=== PATIENT | male | born 1965 | race American Indian/Alaskan Native ===

== ENCOUNTER 2019-07-22 07:27 | Day surgery (SDC) | payer OTHER ==
[2019-07-22] MEDS ORDERED: SODIUM CHLORIDE 0.9% 1000 ML 1,000 ML ONE (08:18)
[2019-07-22] MEDS ORDERED: LIDOCAINE MPF (2%) 20 MG/1 ML VIAL 5 ML ONE (08:30)
[2019-07-22] MEDS ORDERED: fentaNYL 100 MCG/2 ML INJ ONE (08:49)
[2019-07-22] MEDS ORDERED: PROPOFOL 200 MG/20 ML VIAL IV ONE ×3 (08:49→08:50)
--- NOTE | 2019-07-22 08:59 | Anesthesia Consultation ---
Anesthesia Consult and Med Hx Date of service: 07/22/19 - Airway Anesthetic Teeth Evaluation: Good ROM Head & Neck: Adequate Mental/Hyoid Distance: Adequate Mallampati Class: Class III Intubation Access Assessment: Probably Good - Pulmonary Exam CTA: Yes - Cardiac Exam Cardiac Exam: RRR - Pre-Operative Health Status ASA Pre-Surgery Classification: ASA2 - Pulmonary Hx Sleep Apnea: Yes (Does not use CPAP machine) - Cardiovascular System Hx Hypertension: Yes - Endocrine Hx Hypothyroidism: Yes - Other Systems Hx Obesity: Yes
--- NOTE | 2019-07-22 09:00 | Anesthesia Day of Surgery ---
Anesthesia Day of Surgery - Day of Surgery Patient Examined: Yes Patient H&P Reviewed: Yes Patient is NPO: Yes Beta Blockers: No
--- NOTE | 2019-07-22 09:39 | Operative Report ---
PROCEDURE: Esophagogastroduodenoscopy with biopsy. INDICATIONS: This is a 54-year-old obese -[place] male with an underlying history of sleep apnea, has lately been complaining of GERD symptoms. EGD was done to assess for the problem. DESCRIPTION OF PROCEDURE: Procedure was done after getting informed consent with MAC anesthesia. Instrument was passed through the hypopharynx into the esophagus, which showed moderate erosive esophagitis. Biopsy was done to assess for the severity of the erosive esophagitis. The stomach showed gastric erosion, possible evidence of mild portal gastropathy in the proximal stomach and gastritis. Biopsy was done from the gastric antrum, the angular incisura and the gastric body to rule out for H. pylori and to also assess for the severity of the gastritis and gastric erosion. The pylorus is patent. The duodenum in the bulb showed evidence of duodenal erosion. There was no evidence of gastric or duodenal ulcers present. There was some minimal bleeding associated with the biopsy, but no complications associated with the procedure. No esophageal varices were noted. ASSESSMENT: Gastroesophageal reflux disease symptoms, moderate erosive esophagitis, gastric erosion, gastritis, duodenal erosion. PLAN: To treat the patient with PPI, have the patient avoid aspirin and aspirin-related products for the next few days. A colonoscopy will be done as part of colon polyp screening and the patient will be asked to avoid aspirin and aspirin-related products for the next 4 days, but otherwise resume home medication and follow up in the office in 1-2 weeks' time. The procedure was done in the GI lab with assistance of the GI lab team, which included cirilo Sandoval Joshua and with assistance of Anesthesia. JOB# [id number] LORNA/ALIZA
--- NOTE | 2019-07-22 09:39 | Procedure Note ---
Date of procedure: 07/22/19 Pre-op diagnosis: GERD/Colon Polyp Screening/ F/H/O Cancer Post-op diagnosis: other (Moderate,Erosive Esophagitis/Gastric Erosion/Gastritis/Duodenal Erosion/No Peptic Ulcer Disease noted/ No Colon Polyps or Diverticular Disease noted/ Minor,Internal Hemorrhoids) Procedure: EGD with Biopsy and Colonoscopy Anesthesia: [facility] Surgeon: GRANT PEREZ Estimated blood loss: minimal Pathology: list Specimen disposition: to lab Condition: stable Disposition: same day (Treat with PPI. Avoid aspirin and NSAID for 4 days; otherwise resume home medication. Follow up in 1 to 2 weeks ([phone]).)
--- NOTE | 2019-07-22 09:43 | Operative Report ---
PROCEDURE: Colonoscopy. INDICATIONS: A 54-year-old slightly obese -Citizen Of [place] gentleman with an underlying history of sleep apnea, who had an EGD done prior to the colonoscopy. EGD showed evidence of moderate erosive esophagitis, gastric erosion, gastritis, and duodenal erosion. The patient does give a family history of colon cancer, the patient's grandfather had colon cancer. DESCRIPTION OF PROCEDURE: The procedure was done after getting informed consent with MAC anesthesia. Initial rectal exam was unremarkable. Instrument was passed through the rectum onto the cecum, which was identified with ileocecal valve and appendiceal orifice. Visualization was fair to good. The cecum, ascending colon, transverse colon, descending colon, and sigmoid showed normal mucosa. The rectum showed some minor internal hemorrhoid on the retroverted view. ASSESSMENT: There is no bleeding associated with the colonoscopy. No biopsies were done. There was no complication associated with the procedure. ASSESSMENT: Colon polyp screening, family history of cancer. The patient's grandfather had colon cancer. No colon polyps or diverticular disease noted. Minor internal hemorrhoid. The patient will be treated with PPI because of the EGD findings of moderate erosive esophagitis, gastric erosion, gastritis, and duodenal erosion. The patient will be asked to follow up in the office in 1-2 weeks' time to avoid aspirin and aspirin-related products for the next 3-4 days, but otherwise resume home medication. The procedure was done in the GI lab with assistance of the GI lab team, which included cirilo Sandoval Joshua and with assistance of Anesthesia. JOB# [id number] LORNA/LAIZA
[2019-07-22 10:18] VITALS: BP 146/95
[2019-07-22] MEDS ORDERED: SIMETHICONE 40 MG/0.6 ML ORAL DROP 30ML PO ONE (10:36)
== END 2019-07-22 07:28 | disposition home or self-care (01) ==
LOC: GIO 07:27
DX: Z12.11 Encounter for screening for malignant neoplasm of colon (principal); K64.8 Other hemorrhoids; K29.50 Unspecified chronic gastritis without bleeding; B96.81 Helicobacter pylori [H. pylori] as the cause of diseases classified elsewhere; K21.0 Gastro-esophageal reflux disease with esophagitis; G47.33 Obstructive sleep apnea (adult) (pediatric); K29.70 Gastritis, unspecified, without bleeding; I10 Essential (primary) hypertension; E03.9 Hypothyroidism, unspecified; E66.9 Obesity, unspecified; Z80.0 Family history of malignant neoplasm of digestive organs; Z88.0 Allergy status to penicillin; Z91.041 Radiographic dye allergy status; Z79.899 Other long term (current) drug therapy; Z68.42 Body mass index [BMI] 45.0-49.9, adult; Z98.890 Other specified postprocedural states; Z88.8 Allergy status to other drugs, medicaments and biological substances
CPT/HCPCS: 43239; 45378; 88305; 88342; J2704; J3010; J7030